=== PATIENT | female | born 1955 | race Caucasian/White ===

== ENCOUNTER 2017-02-03 12:22 | Emergency (ER) | payer BC, OTHER ==
--- NOTE | 2017-02-03 12:32 | EDM.PDOC ---
ED HPI SEIZURE COMPLAINT - General Chief Complaint: General Stated Complaint: [id number] IN BY AMBULANCE Time Seen by Provider: 02/03/17 12:32 Source of Information: Reports: EMS History Limitations: Reports: No limitations - History of Present Illness INITIAL COMMENTS - FREE TEXT/NARRATIVE: 61 yo white female became weak and sweaty at [facility] and then was lowered to floor by [facility] members. Pt. admits to not eating breakfast. Pt. states previous episode approx. 5 years ago. Pt. denied any chest pain and SOB Symptom Onset Date: 02/03/17 Symptom Onset Time: 11:00 Timing/Duration: Reports: hour(s): Event Occurred (Where): other ([facility]) Event (Witnessed/Unwitnessed): witnessed Location: Reports: generalized Severity: moderate Context: Reports: activity/exercise (active at [facility] singing) Pre Event Symptom(s): Reports: nausea/vomiting, weakness Event Symptoms: Reports: syncope, weakness, diaphoresis - Related Data Allergies/ADRs: Allergies Allergy/AdvReac Type Severity Reaction Status Date / Time acetaminophen [From Vicodin] Allergy Nausea Verified 02/03/17 12:27 albuterol Allergy Anaphylactic Verified 02/03/17 12:27 Shock hydrocodone [From Vicodin] Allergy Nausea Verified 02/03/17 12:27 Penicillins Allergy Hives Verified 02/03/17 12:27 promethazine [From Phenergan] Allergy Muscle Verified 02/03/17 12:27 Aches Home Meds: Home Meds Ascorbate Calcium [Vitamin C] 500 mg PO DAILY 02/03/17 [History] Cholecalciferol (Vitamin D3) [Vitamin D3] 1 tab PO DAILY 02/03/17 [History] Levothyroxine Sodium [Synthroid] 125 mcg PO DAILY 02/03/17 [History] Losartan [Cozaar] 50 mg PO DAILY 02/03/17 [History] Sertraline [Zoloft] 25 mg PO BEDTIME 02/03/17 [History] Ubidecarenone [COQ-10] 1 tab PO DAILY 02/03/17 [History] Vitamin B Complex & Vit C No.4 [Super B Complex] 1 tab PO DAILY 02/03/17 [ History] atorvaSTATin [Lipitor] 20 mg PO BEDTIME 02/03/17 [History] ED ROS GENERAL - Review of Systems Review Of Systems: See Below Constitutional: Reports: weakness HEENT: Reports: No symptoms Respiratory: Reports: No Symptoms Cardiovascular: Reports: No symptoms Endocrine: Reports: no symptoms GI/Abdominal: Reports: No symptoms, Nausea : Reports: no symptoms Musculoskeletal: Reports: no symptoms Skin: Reports: no symptoms Neurological: Reports: Syncope Psychiatric: Reports: No symptoms Hematologic/Lymphatic: Reports: no symptoms Immunologic: Reports: no symptoms - Physical Exam Exam: See Below Exam Limited By: No limitations General Appearance: alert, WD/WN, no apparent distress Eye Exam: bilateral eye: PERRL Ears: normal external exam Nose: normal inspection Throat/Mouth: Normal inspection Course - Vital Signs Last Recorded V/S: Last Vital Signs Temp 36.6 C 02/03/17 12:33 Pulse 61 02/03/17 12:33 Resp 18 02/03/17 12:33 BP 141/74 H 02/03/17 12:33 Pulse Ox 99 02/03/17 12:33 - Orders/Labs/Meds Orders: Active Orders 24 hr Category Date Time Status EKG 12 Lead [EKG Documentation Completion] [RC] STAT Care 02/03/17 13:15 Active Labs: Laboratory Tests 02/03/17 02/03/17 02/03/17 Range/Units 12:38 12:43 12:43 WBC 8.3 (5.0-10.0) 10^3/uL RBC 4.34 (4.2-5.4) 10^6/uL Hgb 12.2 (12.0-16.0) g/dL Hct 37.3 (37.0-47.0) % MCV 85.9 (80-100) fL MCH 28.1 (27.0-34.0) pg MCHC 32.7 L (33.0-35.0) g/dL Plt Count 168 (150-450) 10^3/uL Neut % (Auto) 70.2 (42.2-75.2) % Lymph % (Auto) 18.9 L (20.5-50.1) % [place] % (Auto) 7.7 (2-8) % Eos % (Auto) 3.0 (1.0-3.0) % Baso % (Auto) 0.2 (0.0-1.0) % Sodium 139 (135-145) mmol/L Potassium 3.6 (3.6-5.0) mmol/L Chloride 105 (101-111) mmol/L Carbon Dioxide 25.0 (21.0-31.0) mmol/L Anion Gap 12.6 BUN 16 (7-18) mg/dL Creatinine 0.7 (0.6-1.3) mg/dL Est Cr Clr Drug Dosing 65.90 mL/min Estimated GFR (MDRD) > 60 BUN/Creatinine Ratio 22.85 Glucose 97 (74-105) mg/dL POC Glucose 94 (70-105) mg/dl Calcium 9.0 (8.4-10.2) mg/dl Total Bilirubin 0.5 (0.2-1.0) mg/dL AST 26 (10-42) IU/L ALT 21 (10-60) IU/L Alkaline Phosphatase 83 (42-121) IU/L Total Protein 6.8 (6.7-8.2) g/dl Albumin 4.0 (3.2-5.5) g/dl Globulin 2.8 Albumin/Globulin Ratio 1.43 Urine Color (YELLOW) Urine Appearance (CLEAR) Urine pH (5.0-9.0) Ur Specific [place] (1.005-1.030) Urine Protein (NEGATIVE) Urine Glucose (UA) (NEGATIVE) Urine Ketones (NEGATIVE) Urine Occult Blood (NEGATIVE) Urine Nitrite (NEGATIVE) Urine Bilirubin (NEGATIVE) Urine Urobilinogen (0.2-1.0) mg/dL Ur Leukocyte Esterase (NEGATIVE) Urine RBC /HPF Urine WBC (0-5/HPF) /HPF Ur Epithelial Cells /HPF Urine Bacteria (0-FEW/HPF) /HPF Urine Mucus /LPF 02/03/17 Range/Units 14:30 WBC (5.0-10.0) 10^3/uL RBC (4.2-5.4) 10^6/uL Hgb (12.0-16.0) g/dL Hct (37.0-47.0) % MCV (80-100) fL MCH (27.0-34.0) pg MCHC (33.0-35.0) g/dL Plt Count (150-450) 10^3/uL Neut % (Auto) (42.2-75.2) % Lymph % (Auto) (20.5-50.1) % [place] % (Auto) (2-8) % Eos % (Auto) (1.0-3.0) % Baso % (Auto) (0.0-1.0) % Sodium (135-145) mmol/L Potassium (3.6-5.0) mmol/L Chloride (101-111) mmol/L Carbon Dioxide (21.0-31.0) mmol/L Anion Gap BUN (7-18) mg/dL Creatinine (0.6-1.3) mg/dL Est Cr Clr Drug Dosing mL/min Estimated GFR (MDRD) BUN/Creatinine Ratio Glucose (74-105) mg/dL POC Glucose (70-105) mg/dl Calcium (8.4-10.2) mg/dl Total Bilirubin (0.2-1.0) mg/dL AST (10-42) IU/L ALT (10-60) IU/L Alkaline Phosphatase (42-121) IU/L Total Protein (6.7-8.2) g/dl Albumin (3.2-5.5) g/dl Globulin Albumin/Globulin Ratio Urine Color Yellow (YELLOW) Urine Appearance Clear (CLEAR) Urine pH 6.5 (5.0-9.0) Ur Specific [place] 1.015 (1.005-1.030) Urine Protein Negative (NEGATIVE) Urine Glucose (UA) Negative (NEGATIVE) Urine Ketones Negative (NEGATIVE) Urine Occult Blood Negative (NEGATIVE) Urine Nitrite Negative (NEGATIVE) Urine Bilirubin Negative (NEGATIVE) Urine Urobilinogen 0.2 (0.2-1.0) mg/dL Ur Leukocyte Esterase Negative (NEGATIVE) Urine RBC 0-5 /HPF Urine WBC 0-5 (0-5/HPF) /HPF Ur Epithelial Cells Rare /HPF Urine Bacteria Occasional (0-FEW/HPF) /HPF Urine Mucus Occasional /LPF Meds: Medications Discontinued Medications Generic Name Dose Route Start Last Admin Trade Name Freq PRN Reason Stop Dose Admin Al Hydroxide/Mg Hydroxide 30 ml 02/03/17 15:44 02/03/17 16:01 Gi Cocktail PO 02/03/17 15:45 30 ml ONETIME ONE Administration Cyclobenzaprine HCl 5 mg 02/03/17 13:44 02/03/17 13:51 Flexeril PO 02/03/17 13:45 5 mg ONETIME ONE Administration Ondansetron HCl 4 mg 02/03/17 14:59 02/03/17 15:02 Zofran Odt PO 02/03/17 15:00 4 mg ONETIME ONE Administration Departure - Departure Time of Disposition: 16:14 Disposition: Home, Self-Care 01 Condition: good Clinical Impression: Vasovagal syncope, Hypoglycemia Gastritis Qualifiers: Gastritis type: unspecified gastritis Chronicity: acute Gastritis bleeding: without bleeding Qualified Code(s): K29.00 - Acute gastritis without bleeding Instructions: Near-Syncope, [id number] Additional Instructions: 1) Try to eat something for Breakfast 2) Take the medication as prescribed : Prilosec 20mg QD # 30 3) Rest and Take fluids ( Water / Juice) 4) F/U w/ PCP - My Orders Last 24 Hours: My Active Orders 02/03/17 13:15 EKG 12 Lead [EKG Documentation Completion] [RC] STAT - Assessment/Plan Last 24 Hours: My Active Orders 02/03/17 13:15 EKG 12 Lead [EKG Documentation Completion] [RC] STAT
[2017-02-03 12:43] VITALS: BP 141/74
[2017-02-03 13:11] LABS: CHLORIDE,CL 105 mmol/L (101-111); SODIUM,NA 139 mmol/L (135-145)
[2017-02-03] MEDS ORDERED: Cyclobenzaprine 10 MG Tab PO ONE (13:44)
[2017-02-03] MEDS ORDERED: Ondansetron 4 MG Tab.DIS PO ONE (14:59)
[2017-02-03] MEDS ORDERED: GI Cocktail Oral Solution 30 ML PO ONE (15:44)
[2017-02-03] MEDS ORDERED: Ibuprofen 400 MG Tab PO ONE (16:35)
--- NOTE | 2017-02-12 10:09 | EKG ---
02/03/2017 - MARY HERNADEZ - TIME: 12:29 EKG is sinus rhythm with a rate of 69. Normal MD interval. Normal axis. There is a nonspecific intraventricular conduction delay. EKG otherwise within normal limits. [facility] /[id number]
== END 2017-02-03 16:59 | disposition home or self-care (01) ==
LOC: DL.ED 12:22
DX: R55 Syncope and collapse (principal); K29.00 Acute gastritis without bleeding; E16.2 Hypoglycemia, unspecified; Z79.899 Other long term (current) drug therapy; Z88.0 Allergy status to penicillin; Z88.8 Allergy status to other drugs, medicaments and biological substances; Z88.6 Allergy status to analgesic agent
CPT/HCPCS: 36415; 80053; 81001; 82962; 85025; 93005; 99285; A9270

== ENCOUNTER 2017-02-26 06:54 | Day surgery (SDC) | payer OTHER, BC ==
[~2017-02-26 06:54] MED LIST: Midazolam 1 MG/ML 2 ML SDV ONE; fentaNYL 100 MCG/2 ML SDV ONE
[2017-02-26] MEDS ORDERED: Dextrose 5%-0.45% NaCl 1,000 ML IV SCH (07:15)
[2017-02-26] MEDS ORDERED: fentaNYL 100 MCG/2 ML SDV IV ONE ×3 (07:39→15:46)
[2017-02-26] MEDS ORDERED: Midazolam 1 MG/ML 2 ML SDV IV ONE ×3 (07:41→15:46)
--- NOTE | 2017-02-26 08:24 | OR ---
DATE: 02/26/2017 PROCEDURES: Esophagogastroduodenoscopy and multiple pinch biopsies. INSTRUMENT USED: GIF-H180 Olympus video panendoscope. PREMEDICATIONS: No oral topical anesthesia used. Fentanyl 100 mcg intravenous, Versed 2 mg intravenous, nasal 2 L O2 cannula. The procedure was done under pulse oximetry, BP recording, and court monitor. INDICATION: The patient with persistent abdominal pain and dyspepsia, unexplained and not responsive to medical measures, on long-term aspirin. Esophagogastroduodenoscopy is performed for detection of any active erosive lesions, Flores esophagus and/or malignancy also under consideration, H. pylori status to be determined, endoscopic hemostasis therapy if needed. DESCRIPTION OF PROCEDURE: The scope was passed with ease. Adequate visualization of the esophagus was made from proximal to distal areas. No upper esophageal lesions identified. No distal esophageal stricture. No uphill or downhill esophageal varices. No Lisy-Urias tear. No esophageal polyp or tumor mass identified. Sliding hiatal hernia was noted. No proximal gastric varices were noted. Gastric fundus examination by retroflexion showed no polypoid lesions. No gastric ulcer, malignant mass, or vascular ectasia identified. Scattered erosions were noted at the distal gastric body and proximal antrum. Duodenal bulb showed no ulcer. Visualized second part of the duodenum was unremarkable. Multiple pinch biopsies were taken from the gastric antrum and proximal body and sent for PyloriTek test for H. pylori, and if negative in an hour, the tissue is to be sent for histopathology. No bleeding was noted from any of the visualized areas at the completion of examination. Photographs were taken of the duodenal bulb, gastric antrum, fundus, and distal esophagus. IMPRESSION: 1. Sliding hiatal hernia. 2. Gastric erosions. The patient tolerated the procedure well. [facility] /[id number]
[2017-02-26 09:31] VITALS: BP 108/76
== END 2017-02-26 09:55 | disposition home or self-care (01) ==
LOC: DL.ENDO 06:54
PROVIDERS: ATTEND Internal Medicine Gastroenterology
DX: K29.50 Unspecified chronic gastritis without bleeding (principal); K44.9 Diaphragmatic hernia without obstruction or gangrene; Z88.0 Allergy status to penicillin; Z88.8 Allergy status to other drugs, medicaments and biological substances; I10 Essential (primary) hypertension; E03.9 Hypothyroidism, unspecified; E78.5 Hyperlipidemia, unspecified; F32.9 Major depressive disorder, single episode, unspecified; F41.9 Anxiety disorder, unspecified; Z98.890 Other specified postprocedural states; Z90.710 Acquired absence of both cervix and uterus; Z79.82 Long term (current) use of aspirin; Z79.899 Other long term (current) drug therapy
CPT/HCPCS: 43239; 87077; J2250; J3010; J7042

== ENCOUNTER 2017-03-07 05:23 | Day surgery (SDC) | payer OTHER, BC ==
[2017-03-07] MEDS ORDERED: Dextrose 5%-0.45% NaCl 1,000 ML IV SCH ×2 (06:15→08:00)
[2017-03-07] MEDS ORDERED: Midazolam 1 MG/ML 2 ML SDV ONE (06:17)
[2017-03-07] MEDS ORDERED: fentaNYL 100 MCG/2 ML SDV ONE (06:17)
[2017-03-07] MEDS ORDERED: fentaNYL 100 MCG/2 ML SDV IV ONE ×3 (06:28→16:48)
[2017-03-07] MEDS ORDERED: Midazolam 1 MG/ML 2 ML SDV IV ONE ×7 (06:29→16:48)
[2017-03-07] MEDS ORDERED: Sodium Chloride 0.9% 10 ML Syringe FLUSH PRN (08:00)
[2017-03-07 08:56] VITALS: BP 119/71
--- NOTE | 2017-03-07 10:23 | OR ---
DATE: 03/07/2017 PROCEDURE: Total colonoscopy, NBI, and cold snare polypectomy. INSTRUMENT USED: CF-H180AL Olympus video colonoscope. PREMEDICATIONS: Fentanyl 100 mcg intravenous, Versed 4 mg intravenous. Nasal O2 cannula. The procedure was done under pulse oximetry, BP recording, and house carpenter helper. INDICATION: The patient with previous colonic polyp. Surveillance colonoscopic examination is done for detection of any polypoid lesions and removal, endoscopic hemostasis therapy if needed. DESCRIPTION OF PROCEDURE: Initial rectal exam was unremarkable. Rigid anoscopy was normal. The colonoscope was passed with ease. Numerous scattered diverticula were noted more so in the distal left colon along with deformity. The scope was passed with ease up to the ileocecal area, some fecal material was noted requiring aspiration. Photographs were taken of the normal-appearing cecum, identified by landmarks of appendiceal orifice and double-bulged ileocecal folds. No bleeding was noted from any of the visualized areas at the commencement of the examination. No stricture. No vascular ectasia. No large isolated ulcerations seen. No evidence of diffuse inflammatory bowel disease in the form of friability, contact bleeding, or ulcerations. Probing the proximal sides of folds and flexures, using adequate distention and clearing of the stool material, withdrawal of the scope was made. In the distal ascending colon area, benign-appearing sessile superficial 8 mm sized polyp was noted, NBI views were taken, photographs were obtained, cold snare polypectomy was done, the tissue was retrieved and sent for histopathology. No bleeding was noted from any of the visualized areas at the completion of examination. IMPRESSION: 1. Diverticulosis. 2. Ascending colon polyp. The patient tolerated the procedure well. [facility] /[id number]
== END 2017-03-07 08:50 | disposition home or self-care (01) ==
LOC: DL.ENDO 05:23
PROVIDERS: ATTEND Internal Medicine Gastroenterology
DX: D12.2 Benign neoplasm of ascending colon (principal); E66.09 Other obesity due to excess calories; F41.1 Generalized anxiety disorder; F32.9 Major depressive disorder, single episode, unspecified; E78.5 Hyperlipidemia, unspecified; I10 Essential (primary) hypertension; K21.9 Gastro-esophageal reflux disease without esophagitis; E03.9 Hypothyroidism, unspecified; Z86.010 Personal history of colon polyps; Z98.890 Other specified postprocedural states; Z88.0 Allergy status to penicillin; Z88.8 Allergy status to other drugs, medicaments and biological substances; Z88.5 Allergy status to narcotic agent; Z79.82 Long term (current) use of aspirin; Z79.899 Other long term (current) drug therapy
CPT/HCPCS: 45385; J2250; J3010; J7042

== ENCOUNTER 2018-05-15 08:24 | Day surgery (SDC) | payer OTHER, BC ==
[2018-05-15] MEDS ORDERED: fentaNYL 100 MCG/2 ML SDV IV ONE ×3 (08:25→09:44)
[2018-05-15] MEDS ORDERED: Midazolam 1 MG/ML 2 ML SDV IV ONE ×5 (08:25→09:53)
[2018-05-15] MEDS ORDERED: Lactated Ringers 1,000 ML IV SCH (09:00)
[2018-05-15] MEDS ORDERED: Dextrose 5%-0.45% NaCl 1,000 ML IV SCH (09:15)
[2018-05-15 11:36] VITALS: BP 90/59
--- NOTE | 2018-05-15 15:52 | OR ---
DATE: 05/15/2018 PREOPERATIVE DIAGNOSIS: Personal history of prior colon polyps. POSTOPERATIVE DIAGNOSIS: Personal history of prior colon polyps. PROCEDURE: Total colonoscopy. ANESTHESIA: Conscious sedation with IV Versed and fentanyl. SPECIMEN: None. OPERATIVE FINDING: Significant left-sided colon diverticulosis. No evidence of recurrent polyps. RECOMMENDATION: Followup colonoscopy in 5 years. INDICATION FOR PROCEDURE: This 63-year-old female had a prior colonoscopy last year with removal of a serrated sessile polyp, that may or may not have been completely excised. She is here for followup. PROCEDURE IN DETAIL: After adequate preparation, a colonoscope was inserted into the rectum. This was easily passed all the way to the cecum. Confirmation of the cecum was made by visualization of the ileocecal valve and palpation in the right lower quadrant. The bowel prep was good. On withdrawal of the scope, a good examination of the colon was accomplished. On the ascending right colon, there was no evidence of recurrent polyp, that is where her prior one was removed. The only abnormality of significance is [id number] diverticulosis primarily on the left side and primarily in the sigmoid. No other masses were noted. Air was suctioned from the colon, and the scope was removed. [facility] /[id number]
== END 2018-05-15 11:40 | disposition home or self-care (01) ==
LOC: DL.ENDO 08:24
PROVIDERS: ATTEND Surgery
DX: Z12.11 Encounter for screening for malignant neoplasm of colon (principal); K57.30 Diverticulosis of large intestine without perforation or abscess without bleeding; I10 Essential (primary) hypertension; E03.9 Hypothyroidism, unspecified; Z79.899 Other long term (current) drug therapy; Z88.0 Allergy status to penicillin; Z88.5 Allergy status to narcotic agent; Z88.6 Allergy status to analgesic agent; Z88.8 Allergy status to other drugs, medicaments and biological substances; Z86.010 Personal history of colon polyps
CPT/HCPCS: 45378; J2250; J3010; J7042

== ENCOUNTER 2021-04-19 09:28 | Day surgery (SDC) | payer BC, MEDICARE, OTHER ==
[2021-04-19] MEDS ORDERED: Sodium Chloride 0.9% 10 ML Syringe IV ONE (09:29)
[2021-04-19] MEDS ORDERED: Midazolam 1 MG/ML 2 ML SDV IV ONE (09:29)
[2021-04-19] MEDS ORDERED: Dexamethasone 4 MG/ML SDV IV ONE (09:29)
[2021-04-19] MEDS ORDERED: Acetaminophen/Codeine 300-30 MG Tab PO PRN (09:30)
[2021-04-19] MEDS ORDERED: Cataract Ophth Solution EYELF ONE (09:30)
[2021-04-19] MEDS ORDERED: Timolol Maleate 0.5% Ophth Soln 5 ML Bottle EYELF ONE (09:30)
[2021-04-19] MEDS ORDERED: Povidone-Iodine 5% Sterile Ophth Soln 30 ML Bottle EYELF ONE ×2 (09:30→10:38)
[2021-04-19] MEDS ORDERED: Phenylephrine 10% Ophth Soln 5 ML Bot EYELF ONE (09:30)
[2021-04-19] MEDS ORDERED: Moxifloxacin 0.5% Ophth Soln 3 ML Bottle EYELF ONE (09:30)
[2021-04-19] MEDS ORDERED: Acetaminophen 325 MG Tab PO PRN (09:30)
[2021-04-19] MEDS ORDERED: Sodium Chloride 0.9% 10 ML Syringe FLUSH PRN (09:30)
[2021-04-19] MEDS ORDERED: Ondansetron 4 MG/2 ML SDV IVPUSH PRN (09:30)
[2021-04-19] MEDS ORDERED: Tropicamide 1% Ophth Soln 15 ML Bottle EYELF ONE (09:30)
[2021-04-19] MEDS ORDERED: Proparacaine 0.5% Ophth Soln 15 ML Bottle EYELF ONE (09:30)
[2021-04-19 09:48] VITALS: BP 129/83; PULSE 75
[2021-04-19] MEDS ORDERED: Tetracaine HCl/PF 0.5% 4 ML Bottle EYELF ONE (10:37)
[2021-04-19] MEDS ORDERED: Balanced Salt Solution Ophth Irrig 500 ML Bottle IOCULAR ONE (10:38)
[2021-04-19] MEDS ORDERED: Diclofenac Sodium 0.1% Ophth Soln 5 ML Bottle EYELF ONE (10:38)
[2021-04-19] MEDS ORDERED: Dexamethasone/Neomycin/Polymyxin B Ophth Oint 3.5 GM Tube EYELF ONE (10:38)
[2021-04-19] MEDS ORDERED: Apraclonidine 0.5% Ophth Soln 5 ML Bot EYELF ONE (10:38)
[2021-04-19] MEDS ORDERED: Chondroitin Sulfate/Hyaluronate Sodium Ophth Inj 0.75 ML Syringe EYELF ONE (10:39)
[2021-04-19] MEDS ORDERED: Vancomycin 500 MG SDV ONE (10:39)
[2021-04-19] MEDS ORDERED: Lidocaine 1% 30 ML SDV ONE (10:39)
--- NOTE | 2021-04-20 07:31 | OR ---
DATE: 04/19/2021 PREOPERATIVE DIAGNOSIS: Visually significant mixed cataract, left eye. POSTOPERATIVE DIAGNOSIS: Visually significant mixed cataract, left eye. PROCEDURE: Extracapsular cataract extraction with intraocular lens implant, left eye. ANESTHESIA: Topical/local MAC. COMPLICATIONS: None. INDICATION: Ms. Moon was seen in the clinic. She has complained of a slow progressive decrease in vision. She has difficulty with near vision, difficulty seeing books, pill bottles, difficulty sewing, difficulty with night driving and glare, difficulty seeing her computer and adjusting her glasses does not help. She did see her regular cathode builder, Dr. Cr. Dr. Cr was not able to improve her vision or reduce her symptoms with the change in glasses. I explained options, offered cataract surgery and I explained risks, including, but not limited to, infection, retinal detachment, loss of vision, need for additional surgery, and risks associated with anesthesia. We discussed implant options. She has requested a multifocal implant. I did explain the increased potential for glare, halo, and dysphotopsia. I also explained that she may still require glasses for some activities. OPERATIVE DESCRIPTION: After informed consent was obtained and the risks, benefits, and alternatives were explained, the patient was brought to the operative suite and topical anesthesia was administered. The patient was then prepped and draped in the sterile fashion and attention was placed on the left eye. A sterile lid speculum was placed into the left eye to allow operative exposure. A full-thickness paracentesis was made in the temporal portion of the operative eye. Preservative-free lidocaine 0.1 mL was injected into the anterior chamber followed by viscoelastic. A full-thickness corneal incision was then made into the anterior chamber. A bent needle cystotome was used to create a small bassam in the anterior capsule. The capsulorrhexis forceps was then used to create a 360-degree curvilinear capsulorrhexis. The nucleus was then removed using a phacoemulsification handpiece and the remaining cortical material was then removed with irrigation and aspiration handpiece. Following removal of the cortical material, the capsular bag was then inspected and noted to be free of any holes or tears. Viscoelastic was then injected into the capsular bag and the intraocular lens was inserted into the capsular bag. The viscoelastic material was then removed from both the anterior and posterior chambers and from behind the IOL. The lens and capsular bag were then reinspected. The IOL was well centered and the capsular bag intact. The wound and paracentesis sites were inspected and hydrated with balanced saline solution. Both were found to be self- sealing. The intraocular pressure was assessed digitally and found to be within normal range. A good red reflex was noted at the completion of the procedure. No complications occurred during the operation. At the completion of the procedure, Maxitrol, Voltaren, and Iopidine drops were placed into the operative eye. A sterile eye shield was placed over the operative eye and the patient was transported to the postoperative recovery area having tolerated the procedure well. Postoperative instructions were given along with a postoperative appointment. The patient was advised to call with any questions or concerns. [facility] /[id number]
== END 2021-04-19 11:48 | disposition home or self-care (01) ==
LOC: DL.SDS 09:28
PROVIDERS: ATTEND Ophthalmology
DX: H26.8 Other specified cataract (principal); I10 Essential (primary) hypertension; E78.5 Hyperlipidemia, unspecified; E03.9 Hypothyroidism, unspecified; K21.9 Gastro-esophageal reflux disease without esophagitis; Z98.890 Other specified postprocedural states; Z88.0 Allergy status to penicillin; Z88.8 Allergy status to other drugs, medicaments and biological substances; Z79.899 Other long term (current) drug therapy; Z79.890 Hormone replacement therapy
CPT/HCPCS: 66984; A9270; J1100; J2250; J3370; V2788

== ENCOUNTER 2021-04-26 09:17 | Day surgery (SDC) | payer MEDICARE, OTHER ==
[~2021-04-26 09:17] MED LIST changes: +Acetaminophen 325 MG Tab PO PRN; +Acetaminophen/Codeine 300-30 MG Tab PO PRN; +Cataract Ophth Solution EYERT ONE; -Midazolam 1 MG/ML 2 ML SDV ONE; +Moxifloxacin 0.5% Ophth Soln 3 ML Bottle EYERT ONE; +Ondansetron 4 MG/2 ML SDV IVPUSH PRN; +Phenylephrine 10% Ophth Soln 5 ML Bot EYERT ONE; +Povidone-Iodine 5% Sterile Ophth Soln 30 ML Bottle EYERT ONE; +Proparacaine 0.5% Ophth Soln 15 ML Bottle EYERT ONE; +Sodium Chloride 0.9% 10 ML Syringe FLUSH PRN; +Timolol Maleate 0.5% Ophth Soln 5 ML Bottle EYERT ONE; +Tropicamide 1% Ophth Soln 15 ML Bottle EYERT ONE; -fentaNYL 100 MCG/2 ML SDV ONE
[2021-04-26] MEDS ORDERED: Dexamethasone 4 MG/ML SDV IV ONE (09:18)
[2021-04-26] MEDS ORDERED: Sodium Chloride 0.9% 10 ML Syringe IV ONE (09:18)
[2021-04-26] MEDS ORDERED: Midazolam 1 MG/ML 2 ML SDV IV ONE (09:18)
[2021-04-26] MEDS ORDERED: Diclofenac Sodium 0.1% Ophth Soln 5 ML Bottle EYERT ONE (10:33)
[2021-04-26] MEDS ORDERED: Tetracaine HCl/PF 0.5% 4 ML Bottle EYERT ONE (10:33)
[2021-04-26] MEDS ORDERED: Dexamethasone/Neomycin/Polymyxin B Ophth Oint 3.5 GM Tube EYERT ONE (10:33)
[2021-04-26] MEDS ORDERED: Povidone-Iodine 5% Sterile Ophth Soln 30 ML Bottle EYERT ONE (10:33)
[2021-04-26] MEDS ORDERED: Apraclonidine 0.5% Ophth Soln 5 ML Bot EYERT ONE (10:33)
[2021-04-26] MEDS ORDERED: Chondroitin Sulfate/Hyaluronate Sodium Ophth Inj 0.75 ML Syringe EYERT ONE (10:35)
[2021-04-26] MEDS ORDERED: Balanced Salt Solution Ophth Irrig 500 ML Bottle IOCULAR ONE (10:35)
[2021-04-26] MEDS ORDERED: Lidocaine 1% 30 ML SDV ONE (10:36)
[2021-04-26] MEDS ORDERED: Vancomycin 500 MG SDV EYERT ONE (10:36)
[2021-04-26 11:32] VITALS: BP 108/56; PULSE 57
--- NOTE | 2021-04-27 08:39 | OR ---
DATE: 04/26/2021 PREOPERATIVE DIAGNOSIS: Visually significant mixed cataract, right eye. POSTOPERATIVE DIAGNOSIS: Visually significant mixed cataract, right eye. PROCEDURE: Extracapsular cataract extraction with intraocular lens implant, right eye. ANESTHESIA: Topical/local MAC. COMPLICATIONS: None. INDICATION: Ms. Moon was seen in the clinic with complaints of blurred vision. She has difficulty seeing books, difficulty seeing pill bottles, difficulty sewing, difficulty with night driving, difficulty seeing stairs and curbs, and difficulty with bright lights and glare. She also has difficulty seeing her computer. She saw her regular planting supervisor, Dr. Cr. Dr. Cr was not able to improve her vision with the change in glasses. I explained options, offered cataract surgery, and I explained the risks including, but not limited to infection, retinal detachment, loss of vision, need for additional surgery, and risks associated with anesthesia. We discussed implant options. She has requested a multifocal implant. I did explain the increased potential for glare, halo, and dysphotopsia. I also explained that she may still require glasses for some limited activities. She voiced understanding and wished to proceed. OPERATIVE DESCRIPTION: After informed consent was obtained and the risks, benefits, and alternatives were explained, the patient was brought to the operative suite and topical anesthesia was administered. The patient was then prepped and draped in the sterile fashion and attention was placed on the right eye. A sterile lid speculum was placed into the right eye to allow operative exposure. A full-thickness paracentesis was made in the temporal portion of the operative eye. Preservative-free lidocaine 0.1 mL was injected into the anterior chamber followed by viscoelastic. A full-thickness corneal incision was then made into the anterior chamber. A bent needle cystotome was used to create a small bassam in the anterior capsule. The capsulorrhexis forceps was then used to create a 360-degree curvilinear capsulorrhexis. The nucleus was then removed using a phacoemulsification handpiece and the remaining cortical material was then removed with irrigation and aspiration handpiece. Following removal of the cortical material, the capsular bag was then inspected and noted to be free of any holes or tears. Viscoelastic was then injected into the capsular bag and the intraocular lens was inserted into the capsular bag. The viscoelastic material was then removed from both the anterior and posterior chambers and from behind the IOL. The lens and capsular bag were then reinspected. The IOL was well centered and the capsular bag intact. The wound and paracentesis sites were inspected and hydrated with balanced saline solution. Both were found to be self- sealing. The intraocular pressure was assessed digitally and found to be within normal range. A good red reflex was noted at the completion of the procedure. No complications occurred during the operation. At the completion of the procedure, Maxitrol, Voltaren, and Iopidine drops were placed into the operative eye. A sterile eye shield was placed over the operative eye and the patient was transported to the postoperative recovery area having tolerated the procedure well. Postoperative instructions were given along with a postoperative appointment. The patient was advised to call with any questions or concerns. [facility] /[id number]
== END 2021-04-26 11:48 | disposition home or self-care (01) ==
LOC: DL.SDS 09:17
PROVIDERS: ATTEND Ophthalmology
DX: E11.36 Type 2 diabetes mellitus with diabetic cataract (principal); H26.8 Other specified cataract; E03.9 Hypothyroidism, unspecified; I10 Essential (primary) hypertension; E78.5 Hyperlipidemia, unspecified; K21.9 Gastro-esophageal reflux disease without esophagitis; Z88.0 Allergy status to penicillin; Z88.8 Allergy status to other drugs, medicaments and biological substances; Z79.899 Other long term (current) drug therapy; Z79.890 Hormone replacement therapy
CPT/HCPCS: 66984; A9270; J1100; J2250; J3370; V2788

== ENCOUNTER 2024-06-20 20:15 | Emergency (ER) | payer MEDICARE ==
[2024-06-20] MEDS: Bacitracin/Neomycin/Polymyxin B Oint 28.4 GM Tube TOP ONE (23:51)
[2024-06-20 23:57] VITALS: BP 146/80; PULSE 68
== END 2024-06-21 00:04 | disposition home or self-care (01) ==
LOC: DL.ED 20:15
DX: S50.311A Abrasion of right elbow, initial encounter (principal); I10 Essential (primary) hypertension; E78.00 Pure hypercholesterolemia, unspecified; K21.9 Gastro-esophageal reflux disease without esophagitis; E03.9 Hypothyroidism, unspecified; Z90.710 Acquired absence of both cervix and uterus; Z79.899 Other long term (current) drug therapy; Z79.82 Long term (current) use of aspirin; Z79.890 Hormone replacement therapy; Z88.0 Allergy status to penicillin; Z88.5 Allergy status to narcotic agent; Z88.6 Allergy status to analgesic agent; Z88.8 Allergy status to other drugs, medicaments and biological substances; W19.XXXA Unspecified fall, initial encounter; Y92.007 Garden or yard of unspecified non-institutional (private) residence as the place of occurrence of the external cause
CPT/HCPCS: 73060; 73090; 73130; 99283; A9270